=== PATIENT | male | born 1965 | race Caucasian/White ===

== ENCOUNTER 2022-06-13 09:19 | Day surgery (SDC) | payer MEDICARE, OTHER ==
[~2022-06-13] VITALS: Ht 177.8 cm; Wt 139.4 kg
[~2022-06-13 09:19] MED LIST: ACET500 PO; AMLO5 PO; Aspir 8181 MG PO; CARV6.25 PO; Crestor20 MG; GABA300 PO; LISI20 PO; METFORMIN ER1000 M2 PO; NARCAN4 M1; OXYC10TA19 PO; TRULICITY3 MG/0.5 M SC
--- NOTE | 2022-06-13 09:44 | NUR ---
History, Chart, Medications and Allergies reviewed before start of procedure.Patient confirms NPO status and agrees with scheduled surgery. Pre-Op teaching done. Pt verbalizes understanding. Patient States Post-Procedure ride home has been arranged.
--- NOTE | 2022-06-13 11:14 | NUR ---
06/13/22 1114 Eloisa Kenny PRIOR TO PROCEDURE REVIEWED H&P. MEDS AND MARIALUISA. CONTINUOUS MONITORS IN PLACE DURING PROCEDURE ALONG WITH POM IN PLACED O2@10L. SELF PROVIDES ANESTHESIA. SEE RECORDS
--- NOTE | 2022-06-13 11:58 | NUR ---
Discharge instructions reviewed with patient. Patient verbalizes understanding. Copy given to patient to take home. Patient States Post-Procedure ride home has been arranged. Discharged via wheelchair to private car for ride home.
== END 2022-06-13 22:34 | disposition home or self-care (01) ==
LOC: ORSCMMR 09:19 → EDSEX 10:45 → ORSCMMR 10:45 → ORD 10:45 → ORSCMMR 22:34
PROVIDERS: Internal Medicine Gastroenterology
PROC: 0DJD8ZZ Inspection of Lower Intestinal Tract, Via Natural or Artificial Opening Endoscopic (ICD-10-PCS; principal; 2022-06-13 10:45)
DX: Z12.11 Encounter for screening for malignant neoplasm of colon (principal); Z86.010 Personal history of colon polyps; K57.30 Diverticulosis of large intestine without perforation or abscess without bleeding; E11.9 Type 2 diabetes mellitus without complications; I10 Essential (primary) hypertension; E66.01 Morbid (severe) obesity due to excess calories; Z68.42 Body mass index [BMI] 45.0-49.9, adult; Z79.84 Long term (current) use of oral hypoglycemic drugs; Z79.899 Other long term (current) drug therapy
CPT/HCPCS: 82947; J2250; J2405; J2704; J7120

== ENCOUNTER 2023-03-23 05:11 | Emergency (ER) | payer MEDICARE, OTHER ==
[~2023-03-23] VITALS: Ht 182.9 cm; Wt 140.6 kg
[2023-03-23 05:48] LABS: BASOPHILS ABSOLUTE AUTO 0.14 K/mm3 (0.00-0.23); BASOPHILS PERCENT AUTO 1 % (0-2); EOSINOPHILS PERCENT AUTO 2 % (0-6); Hemoglobin 16.2 g/dL (13.5-17.5); IMMATURE GRAN ABSOLUTE AUTO 0.14 K/mm3 (0.00-0.10); IMMATURE GRAN PERCENT AUTO 1 % (0-1); LYMPHOCYTES PERCENT AUTO 25 % (21-46); MONOCYTES ABSOLUTE AUTO 0.91 K/mm3 (0.16-1.47); MONOCYTES PERCENT AUTO 8 % (4-13); Mean Corpuscular HGB 34.3 pg (26.0-34.0); Mean Corpuscular HGB Conc 36.8 g/dL (31.5-36.5); Mean Corpuscular Volume 93 fL (80-100); NEUTROPHILS ABSOLUTE AUTO 7.53 K/mm3 (1.96-9.15); NEUTROPHILS PERCENT AUTO 63 % (41-73); Platelet Count 201 K/mm3 (150-400); RDW Coefficient Variation 13.6 % (11.7-14.2); RDW Standard Deviation 45.4 fL (35.1-46.3); Red Blood Cell Count 4.72 M/mm3 (4.30-5.90); White Blood Cell Count 11.92 K/mm3 (4.00-11.30)
[2023-03-23 05:50] LABS: Base Excess Venous -1.9 mmol/L; Bicarbonate Venous 21.5 mmol/L (24.0-30.0); PCO2 Venous 46.6 mmHg (38-42); pH Blood Venous 7.32 (7.34-7.37)
[2023-03-23 06:04] LABS: International Normalized Ratio 1.14; Prothrombin Time Results 11.9 Sec (9.7-11.5)
[2023-03-23] MEDS ORDERED: MS CONTIN3010 (06:15)
[2023-03-23] MEDS ORDERED: ZANAFLEX413 (06:15)
[2023-03-23 06:33] LABS: Alanine Aminotransfer (ALT/SGP 48 U/L (12-78); Albumin, Blood 3.6 g/dL (3.4-5.0); Albumin/Globulin Ratio 0.9 (0.8-1.8); Alk Phos 115 U/L (50-136); Anion Gap 9 mmol/L (6-16); Aspartate Aminotrans (AST/SGOT 34 U/L (12-37); Beta-hydroxybutyrate 0.7 mg/dL (0.2-2.8); Bilirubin, Total 0.9 mg/dL (0.1-1.0); Blood Urea Nitrogen 16 mg/dL (8-24); Bun/Creatinine Ratio 13.9 (12.0-20.0); CO2, Blood 24 mmol/L (21-32); Calcium, Blood 9.1 mg/dL (8.5-10.1); Chloride, Blood 97 mmol/L (98-108); Creatinine, Blood 1.15 mg/dL (0.60-1.20); Ethanol (Alcohol), Blood, Med <3 mg/dL; Globulin, Blood 4.2 g/dL (2.2-4.0); Glomerular Filtration Rate 74 (60-); Glucose, Blood 431 mg/dL (70-99); Phosphorus, Blood 4.1 mg/dL (2.5-4.9); Potassium, Blood 4.2 mmol/L (3.5-5.5); Sodium, Blood 130 mmol/L (136-145); Total Protein, Blood 7.8 g/dL (6.4-8.2)
[2023-03-23 06:49] LABS: Influenza A, PCR NEGATIVE (NEGATIVE); Influenza B, PCR NEGATIVE (NEGATIVE); Resp Syncytial Virus, PCR NEGATIVE (NEGATIVE); SARS-Cov-2 (COVID-19) PCR, MMC NEGATIVE (NEGATIVE)
[2023-03-23 07:19] LABS: Source, Urine Clean Catch
[2023-03-23 07:29] LABS: Bilirubin, Urine Neg (Neg); Blood, Urine 3+ (Neg); Glucose Qualitative, Urine 4+ (Neg); Ketones, Urine Neg (Neg); Leukocyte Esterase, Urine 3+ (Neg); Nitrite, Urine Neg (Neg); Protein, Urine Neg (Neg); Urobilinogen, Urine NORM (Normal)
[2023-03-23 08:18] LABS: U Amphetamine Screen Not Detected; U Barbituate Screen Not Detected; U Benzodiazapine Screen Not Detected; U Buprenorphine Screen Not Detected; U Cannabinoids Screen Not Detected; U Cocaine Screen Not Detected; U Methadone Screen Not Detected; U Methamphetamine Screen Not Detected; U Opiates Screen DETECTED; U Oxycodone Screen Not Detected; U Phencyclidine Screen Not Detected
[2023-03-23 08:23] LABS: Appearance, Urine Hazy (Clear); Color, Urine Yellow (P-Yellow)
[2023-03-23 08:25] LABS: Bacteria Mod /hpf; Red Blood Cells, Urine 0-2 /hpf (0-2); Squamous Epithelial Cells Few /hpf (Few); White Blood Cells, Urine TNTC /hpf (0-5)
[2023-03-23 08:49] LABS: Base Excess Venous 1.3 mmol/L; PCO2 Venous 48.3 mmHg (38-42); pH Blood Venous 7.35 (7.34-7.37)
[2023-03-23 10:45] VITALS: BP 133/90
[2023-03-23] MEDS ORDERED: ONDA4ODT MM ×2 (10:51→11:29)
[2023-03-23] MEDS ORDERED: CEFU250T47 PO ×2 (10:51→11:29)
== END 2023-03-23 11:06 | disposition home or self-care (01) ==
LOC: ER 05:11
PROVIDERS: Emergency Medicine; Student in an Organized Health Care Education/Training Program
DX: E86.0 Dehydration (principal); N39.0 Urinary tract infection, site not specified; R11.0 Nausea; E11.65 Type 2 diabetes mellitus with hyperglycemia; I10 Essential (primary) hypertension; E66.01 Morbid (severe) obesity due to excess calories; Z11.52 Encounter for screening for COVID-19; Z79.84 Long term (current) use of oral hypoglycemic drugs; Z79.82 Long term (current) use of aspirin; Z79.85 Long-term (current) use of injectable non-insulin antidiabetic drugs; Z79.899 Other long term (current) drug therapy
CPT/HCPCS: 0241U; 70450; 71045; 80053; 81001; 82010; 82803; 82947; 83605; 83690; 83735; 84100; 84145; 85025; 85610; 87086; 87147; 93005; 93010; 96361; 96365; 96366; 99285-25; J0696; J1815; J7030; J7120

== ENCOUNTER 2024-01-05 10:24 | Emergency (ER) | payer MEDICARE, OTHER ==
[~2024-01-05] VITALS: Ht 180.3 cm; Wt 90.7 kg
[~2024-01-05 10:24] MED LIST changes: +CEFU250T47 PO; +MS CONTIN3010; +ONDA4ODT MM; +ZANAFLEX413
[2024-01-05] MEDS ORDERED: NS 1,000 ML IV SCH (11:00)
[2024-01-05] MEDS ORDERED: Ondansetron HCl 2 MG / ML 2ML Vial IV ONE ×4 (11:00→14:20)
[2024-01-05] MEDS ORDERED: Morphine Sulfate 4 MG/1 ML Injection IV ONE ×2 (12:40→14:15)
[2024-01-05 12:45] LABS: BASOPHILS ABSOLUTE AUTO 0.03 K/mm3 (0.00-0.23); BASOPHILS PERCENT AUTO 1 % (0-2); EOSINOPHILS ABSOLUTE AUTO 0.04 K/mm3 (0.00-0.68); EOSINOPHILS PERCENT AUTO 1 % (0-6); Hematocrit 39.3 % (37.0-53.0); Hemoglobin 14.2 g/dL (13.5-17.5); IMMATURE GRAN ABSOLUTE AUTO 0.05 K/mm3 (0.00-0.10); IMMATURE GRAN PERCENT AUTO 1 % (0-1); LYMPHOCYTES ABSOLUTE AUTO 0.92 K/mm3 (0.84-5.20); LYMPHOCYTES PERCENT AUTO 17 % (21-46); MONOCYTES ABSOLUTE AUTO 0.57 K/mm3 (0.16-1.47); MONOCYTES PERCENT AUTO 10 % (4-13); Mean Corpuscular HGB 34.6 pg (26.0-34.0); Mean Corpuscular HGB Conc 36.1 g/dL (31.5-36.5); Mean Corpuscular Volume 96 fL (80-100); Mean Platelet Volume 8.7 fL (9.1-12.4); NEUTROPHILS ABSOLUTE AUTO 3.88 K/mm3 (1.96-9.15); NEUTROPHILS PERCENT AUTO 71 % (41-73); Platelet Count 120 K/mm3 (150-400); RDW Coefficient Variation 14.3 % (11.7-14.2); RDW Standard Deviation 49.9 fL (35.1-46.3); White Blood Cell Count 5.49 K/mm3 (4.00-11.30)
[2024-01-05 13:08] LABS: Albumin, Blood 3.8 g/dL (3.4-5.0); Albumin/Globulin Ratio 1.2 (0.8-1.8); Bilirubin, Total 1.2 mg/dL (0.1-1.0); Bun/Creatinine Ratio 9.6 (12.0-20.0); Calcium, Blood 9.6 mg/dL (8.5-10.1); Creatinine, Blood 0.93 mg/dL (0.60-1.20); Globulin, Blood 3.2 g/dL (2.2-4.0); Potassium, Blood 4.5 mmol/L (3.5-5.5)
[2024-01-05 13:17] LABS: Source, Urine Clean Catch
[2024-01-05 13:34] LABS: Appearance, Urine Clear (Clear); Bilirubin, Urine Neg (Neg); Blood, Urine Neg (Neg); Color, Urine Yellow (P-Yellow); Glucose Qualitative, Urine 2+ (Neg); Ketones, Urine Neg (Neg); Leukocyte Esterase, Urine Neg (Neg); Nitrite, Urine Neg (Neg); Protein, Urine Neg (Neg); Urobilinogen, Urine 2+ (Normal)
[2024-01-05] MEDS ORDERED: HYDROmorphone HCl 2 MG Tab PO ONE (15:50)
[2024-01-05 16:45] VITALS: BP 162/98
[2024-01-05] MEDS ORDERED: ONDA4ODT MM (16:50)
[2024-01-05] MEDS ORDERED: Percocet 5-3251 EACH PO ×2 (16:50→16:53)
== END 2024-01-05 17:07 | disposition home or self-care (01) ==
LOC: ER 10:24
PROVIDERS: Physician Assistant
DX: K66.8 Other specified disorders of peritoneum (principal); K74.60 Unspecified cirrhosis of liver; K76.0 Fatty (change of) liver, not elsewhere classified; I10 Essential (primary) hypertension; Z98.890 Other specified postprocedural states; Z79.82 Long term (current) use of aspirin; Z79.85 Long-term (current) use of injectable non-insulin antidiabetic drugs; Z79.899 Other long term (current) drug therapy; Z96.653 Presence of artificial knee joint, bilateral
CPT/HCPCS: 74177; 80053; 81003; 83690; 85025; 96361; 96374-59; 96375; 96376; 99284-25; A9270; J2270; J2405; J7030; Q9967

== ENCOUNTER 2024-05-04 10:50 | Inpatient (IN) | payer MEDICARE, OTHER ==
[~2024-05-04] VITALS: Ht 182.9 cm; Wt 132.7 kg
[~2024-05-04 10:50] MED LIST changes: -Crestor20 MG; +Percocet 5-3251 EACH PO; +ROSUVASTATIN CA20 MG PO; -ZANAFLEX413; +ZANAFLEX413 PO
[2024-05-04] MEDS ORDERED: NS 1,000 ML IV SCH (11:20)
[2024-05-04 11:28] LABS: BASOPHILS ABSOLUTE AUTO 0.07 K/mm3 (0.00-0.23); BASOPHILS PERCENT AUTO 1 % (0-2); EOSINOPHILS ABSOLUTE AUTO 0.21 K/mm3 (0.00-0.68); EOSINOPHILS PERCENT AUTO 2 % (0-6); Hematocrit 30.2 % (37.0-53.0); Hemoglobin 10.3 g/dL (13.5-17.5); IMMATURE GRAN ABSOLUTE AUTO 0.17 K/mm3 (0.00-0.10); IMMATURE GRAN PERCENT AUTO 2 % (0-1); LYMPHOCYTES PERCENT AUTO 13 % (21-46); MONOCYTES ABSOLUTE AUTO 0.91 K/mm3 (0.16-1.47); MONOCYTES PERCENT AUTO 10 % (4-13); Mean Corpuscular HGB 32.4 pg (26.0-34.0); Mean Corpuscular HGB Conc 34.1 g/dL (31.5-36.5); Mean Corpuscular Volume 95 fL (80-100); Mean Platelet Volume 8.6 fL (9.1-12.4); NEUTROPHILS PERCENT AUTO 72 % (41-73); Platelet Count 390 K/mm3 (150-400); RDW Coefficient Variation 14.2 % (11.7-14.2); RDW Standard Deviation 49.8 fL (35.1-46.3); Red Blood Cell Count 3.18 M/mm3 (4.30-5.90); White Blood Cell Count 9.26 K/mm3 (4.00-11.30)
[2024-05-04 12:02] LABS: Albumin, Blood 2.6 g/dL (3.4-5.0); Albumin/Globulin Ratio 0.5 (0.8-1.8); Bilirubin, Total 0.4 mg/dL (0.1-1.0); Bun/Creatinine Ratio 13.9 (12.0-20.0); Calcium, Blood 9.2 mg/dL (8.5-10.1); Creatinine, Blood 4.24 mg/dL (0.60-1.20); Globulin, Blood 5.3 g/dL (2.2-4.0); Potassium, Blood 4.1 mmol/L (3.5-5.5); Total Protein, Blood 7.9 g/dL (6.4-8.2)
[2024-05-04] MEDS ORDERED: CeFAZolin Sodium 1,000 MG in NS 50 ML IV ONE (13:20)
[2024-05-04] MEDS ORDERED: FLU VACC TS2024-25(6MOS UP)/PF 45 MCG/0.5 ML SYRINGE IM SCH (14:10)
[2024-05-04] MEDS ORDERED: Magnesium Hydroxide Conc 10 ML UDC PO PRN (14:15)
[2024-05-04] MEDS ORDERED: TRIDERM28.4 GM TOP (14:36)
[2024-05-04] MEDS ORDERED: PANTOPRAZOLE SO40 M2 PO (14:37)
[2024-05-04] MEDS ORDERED: Lactated Ringer's 1,000 ML IV SCH (15:00)
[2024-05-04] MEDS ORDERED: Ondansetron 4 MG SoluTab MM PRN (15:20)
[2024-05-04] MEDS ORDERED: HydrALAZINE HCl 20 MG / ML 1ML Vial IV PRN (15:20)
[2024-05-04] MEDS ORDERED: Acetaminophen 500 MG Tab PO PRN (15:25)
[2024-05-04] MEDS ORDERED: OxyCODONE HCL 5 MG TAB PO PRN (16:00)
[2024-05-04] MEDS ORDERED: Insulin Human Lispro 100 Units/ML 3ML Syringe SC SCH (16:30)
[2024-05-04] MEDS ORDERED: Carvedilol 6.25 MG Tab PO SCH (17:00)
--- NOTE | 2024-05-04 17:29 | NUR ---
PATIENT ARRIVED TO FLOOR AT 1729 VIA WC ESCORTED BY .
[2024-05-04 17:36] VITALS: BP 205/93
[2024-05-04 18:30] VITALS: BP 146/78
[2024-05-04 18:52] VITALS: BP 146/78
[2024-05-04] MEDS ORDERED: OZEMPIC2 MG/0.75 SC (19:33)
[2024-05-04] MEDS ORDERED: FAMO20 PO (19:43)
[2024-05-04 19:53] VITALS: BP 144/84
[2024-05-04] MEDS ORDERED: Gabapentin 300 MG Cap PO SCH (21:00)
[2024-05-04] MEDS ORDERED: Triamcinolone Acet 0.1% Cream 15 gm TOP SCH (21:00)
[2024-05-04] MEDS ORDERED: AmLODIPine Besylate 5 MG Tab PO SCH (21:00)
[2024-05-04] MEDS ORDERED: Docusate Sodium 100 MG Cap PO SCH (21:00)
[2024-05-05] VITALS (19 sets, daily range): BP systolic 90–162; BP diastolic 54–96
[2024-05-05] MEDS ORDERED: CeFAZolin Sodium 1,000 MG in NS 50 ML IV SCH (01:00)
--- NOTE | 2024-05-05 05:49 | NUR ---
MARKET ANALYSIS DIRECTOR SUMMARY PT ADMITTED FROM ER. HIS ABDOMINAL WOUND FROM HIS SURGERY ON 04-14 IS NOT APPROXIMATED AND HAS SEROSANG DRAINAGE WITH ONE SMALL AREA THAT IS DRAINING PUS, ENTIRE INCISION SURROUNDED BY REDNESS (SEE PHOTOS IN PAPER CHART). WOUND CLEANSED WITH WOUND CONSTRUCTION EQUIPMENT OPERATOR AND NEW DRESSING APPLIED. PT HAS BEEN NPO SINCE MIDNIGHT IN ANTICIPATION OF SURGICAL CONSULT TODAY. NO EVENTS ON TELE, NSR IN THE 80S-90S. PRN IV HYDRALAZINE GIVEN X 1 FOR SBP >160. PT REPORTS ABD PAIN FROM HIS CELLULITS RELIEVED BY OXYCODONE. LR RUNNING AT 125.
[2024-05-05 05:51] LABS: Bun/Creatinine Ratio 13.5 (12.0-20.0); Calcium, Blood 8.8 mg/dL (8.5-10.1); Creatinine, Blood 3.64 mg/dL (0.60-1.20); Potassium, Blood 4.1 mmol/L (3.5-5.5)
[2024-05-05] MEDS ORDERED: CeFAZolin Sodium 2,000 MG in NS 100 ML IV SCH (08:17)
[2024-05-05] MEDS ORDERED: Rosuvastatin Calcium 10 MG Tab PO SCH (09:00)
[2024-05-05] MEDS ORDERED: Pantoprazole Sodium 40 MG Tab PO SCH (09:00)
[2024-05-05] MEDS ORDERED: TiZANidine HCl 4 MG Tab PO SCH (09:00)
[2024-05-05] MEDS ORDERED: Heparin Sodium 5000 Units/ML 1ML MDV SC SCH (09:00)
[2024-05-05] MEDS ORDERED: Sodium Bicarbonate 650 MG Tab PO SCH (09:00)
[2024-05-05] MEDS ORDERED: Sodium Hypochlorite 480 ML BTL (0.25%) TOP ONE (09:50)
[2024-05-05] MEDS ORDERED: Lactated Ringer's 1,000 ML IV SCH ×2 (11:35→15:25)
--- NOTE | 2024-05-05 11:40 | NUR ---
PT TO SDS BY FAMILY JACOB WITH PT. History, Chart, Medications and Allergies reviewed before start of procedure.Patient confirms NPO status and agrees with scheduled surgery. Pre-Op teaching done. Pt verbalizes understanding. Lungs clear T/O to Auscultation.
[2024-05-05] MEDS ORDERED: Piperacillin/Tazobactam Sod 2.25 GM in NS 50 ML IV SCH (12:00)
[2024-05-05] MEDS ORDERED: Ondansetron HCl 2 MG / ML 2ML Vial ONE (12:01)
[2024-05-05] MEDS ORDERED: Dexamethasone Sod Phos 10 MG/ML 1ML VIAL ONE (12:01)
[2024-05-05] MEDS ORDERED: Rocuronium Bromide 10 MG/ML 5ML Injection IV ONE (12:01)
[2024-05-05] MEDS ORDERED: propofoL 20 ML IV ONE ×2 (12:01)
[2024-05-05] MEDS ORDERED: Midazolam HCl 1MG / ML 2ML Vial ONE ×2 (12:04→12:47)
--- NOTE | 2024-05-05 12:25 | NUR ---
EKG COMPLETED PER ORDER. ABX STARTED, DISCUSSED WITH CONDENSER OPERATOR.
[2024-05-05] MEDS ORDERED: Etomidate 2MG / ML 10ML Vial ONE (12:36)
--- NOTE | 2024-05-05 12:50 | NUR ---
TELE TO PACU WITH PT'S NAME BATTING MACHINE OPERATOR INSULATION IT.
[2024-05-05] MEDS ORDERED: ePHEDrine Sulfate 50 MG/ML 1ML Injection ONE (13:00)
[2024-05-05] MEDS ORDERED: Sugammadex Sodium 200 MG/2ML SDV (100 MG/ML) ONE (13:10)
--- NOTE | 2024-05-05 13:29 | NUR ---
05/05/24 1329 Laura,Danika ZOSYN 2.25GM WAS STARTED PREOPERATIVELY.
[2024-05-05] MEDS ORDERED: FentaNYL Citrate 50 MCG/ML 2 ML Injection ONE (13:55)
[2024-05-05] MEDS ORDERED: FentaNYL Citrate 50 MCG/ML 2 ML Injection IV PRN (18:45)
[2024-05-05] MEDS ORDERED: Insulin Human Lispro 100 Units/ML 3ML Syringe SC SCH (23:41)
[2024-05-06] VITALS (7 sets, daily range): BP systolic 119–162; BP diastolic 80–99
[2024-05-06 05:36] LABS: Bun/Creatinine Ratio 12.8 (12.0-20.0); Calcium, Blood 8.3 mg/dL (8.5-10.1); Creatinine, Blood 3.13 mg/dL (0.60-1.20)
--- NOTE | 2024-05-06 07:39 | NUR ---
ASSUMED CARE OF PATIENT. AWAKE DURIN SHIFT-CHANGE REPORT. UPDATES COMPLETED THIS PATIENT IS FAMILIAR TO THIS RN. NO ACUTE NEEDS. BED IN LOWEST POSITION. CALL LIGHT WITHIN REACH. PAIN WITHIN NORMAL PROPORTIONS. CHART REVIEW INITIATED.
--- NOTE | 2024-05-06 07:41 | NUR ---
CHIN STRAP CUTTER SUMMARY PTS ABDOMINAL INCISION PAIN INCREASED AFTER HIS SURGERY COMPARED WITH BEFORE HIS SURGERY. PAIN WAS WELL CONTROLLED WITH OXYCODONE AND IV FENTANYL FOR BREAKTHROUGH. PLAN FOR WOUND PACKING AND WOUND CARE THIS MORNING AFTER PTS GETS HERE SO SHE CAN BE EDUCATED ON HOW TO PACK A WOUND AT HOME.
[2024-05-06] MEDS ORDERED: Insulin Human Lispro 100 Units/ML 3ML Syringe SC SCH (11:30)
--- NOTE | 2024-05-06 18:29 | NUR ---
END OF SHIFT SUMMARY: A&Ox4. PLEASANT AND COOPERATIVE WITH CARE. CALLS APPROPRIATELY AND IS ABLE TO ADVOCATE NEEDS EFFECTIVELY. CONTINENT OF BOWEL AND BLADDER AND AMBULATES INDEPENDENTLY TO BATHROOM FOR BM. URINAL FOR VOIDING D/T ABD PAIN c SITTING UP AND LYING DOWN. MEDS WHOLE c FLUIDS. MEDICATED q4h PRN PAIN. TELE NS c PVCs @ 85bpm. POD#1 I&D DEHISCING ABD WOUND. ABD BINDER IN PLACE TO AID c ABD INCISION. WOUND CARE DONE TODAY; ,CAL, SHOWN HOW TO PERFORM. MEASUREMENTS TAKEN:. LENGTH: 9cm; WIDTH: 4cm; DEPTH AT DEEPEST: 4cm AND 4cm TUNNELING TOP OF WOUND GOING UP CADUALLY. PACKED PER ORDERS. SUTURES PALPATED PER ORDERS. NEW PICTURES TAKEN AND PLACED IN HARD COPY CHART. BED IN LOWEST POSITION, CALL LIGHT WITHIN REACH, ALL NEEDS MET. REPORT TO ONCOMING NURSE.
--- NOTE | 2024-05-06 20:38 | NUR ---
PT ADMITTED TO FLOOR AT 1830 FOR SBO. REPORT FROM DAY SHIFT MEDICAL FLOOR RN- ED UNABLE TO PLACE NGT X 2 ATTEMPTS, AND HEART RATE 150-160'S PER TELE. IV METOPROLOL X3 DOSES GIVEN PER ORDER WITH TELE STILL SHOWING AFIB 120'130'S. WILLIAM DEL CASTILLO NOTIFIED, AND INSTRUCTED TO TRANSFER PT TO PCU FOR DILT GTT STARTING AT 10MG/HR. NOTIFIED ABUNDIO OF INABLITLY OF ED TO INSERT NGT, AND PT PULLING OUT 1 IV THIS SHIFT, BUT IF POSSIBLE NGT IS STILL NEEDED PER ABUNDIO.
[2024-05-06] MEDS ORDERED: dilTIAZem HCL 100 MG in NS 100 ML IV SCH (20:40)
[2024-05-07 04:32] VITALS: BP 154/88
[2024-05-07 06:00] LABS: Bun/Creatinine Ratio 14.3 (12.0-20.0); Calcium, Blood 8.5 mg/dL (8.5-10.1); Creatinine, Blood 2.73 mg/dL (0.60-1.20); Potassium, Blood 3.9 mmol/L (3.5-5.5)
--- NOTE | 2024-05-07 06:22 | NUR ---
SHIFT SUMMARY PT WITH DRESSING TO ABD CLEAN AND INTACT, EXTRA ABD PAD ADDED TO KEEP DRY AGAINST ABD BINDER. DRESSING HAD BEEN CHANGED DURING DAY SHIFT. PT MEDICATED FOR PAIN PER EMAR. IVF AND IV ANTIBIOTICS CONTINUE. PT INDEPENDENT IN ROOM. SLEPT INTERMITTENTLY DURING THE NIGHT. BED IN LOWEST POSITION, CALL LIGHT WITHIN REACH, SIDERAILS UP X2.
[2024-05-07 07:42] VITALS: BP 147/89
[2024-05-07] MEDS ORDERED: GlipiZIDE 5 MG TabCR PO SCH (08:00)
[2024-05-07] MEDS ORDERED: Amoxicillin/Clavulanate K 875 MG Tab PO SCH (09:00)
[2024-05-07] MEDS ORDERED: AmLODIPine Besylate 5 MG Tab PO SCH (09:00)
[2024-05-07] MEDS ORDERED: AMOCLA875 PO (10:33)
[2024-05-07] MEDS ORDERED: AMLO10 PO (10:33)
[2024-05-07] MEDS ORDERED: DOCU100 PO (10:33)
[2024-05-07] MEDS ORDERED: CARV6.25 PO (10:33)
[2024-05-07] MEDS ORDERED: VISBIOME 112.51 EACH PO (10:34)
[2024-05-07] MEDS ORDERED: GLIP5 PO (10:34)
--- NOTE | 2024-05-07 11:18 | NUR ---
DISCHARGE SUMMARY PT DC THIS SHIFT. DC INSTRUCTION GONE OVER WITH PT AND PT WHOM BOTH STATED UNDERSTANDING. PT WAS ESCORTED OUT TO PRIVATE VEHICLE VIA WHEELCHAIR BY ENGINEERING MANAGER [employer]LECTRONICS.
== END 2024-05-07 11:15 | disposition home or self-care (01) | DRG 856 ==
LOC: ER 10:50 → MEDS 14:10 → ENPENDDIS 05-07 10:14 → MEDS 05-07 11:15
PROVIDERS: Emergency Medicine; Surgery; ADMIT Internal Medicine
PROC: 0JB80ZZ Excision of Abdomen Subcutaneous Tissue and Fascia, Open Approach (ICD-10-PCS; principal; 2024-05-05 13:00)
DX: T81.41XA Infection following a procedure, superficial incisional surgical site, initial encounter (principal); N17.0 Acute kidney failure with tubular necrosis; F11.20 Opioid dependence, uncomplicated; L03.311 Cellulitis of abdominal wall; Z68.41 Body mass index [BMI] 40.0-44.9, adult; K21.9 Gastro-esophageal reflux disease without esophagitis; E11.9 Type 2 diabetes mellitus without complications; G89.29 Other chronic pain; G47.33 Obstructive sleep apnea (adult) (pediatric); K74.60 Unspecified cirrhosis of liver; E78.5 Hyperlipidemia, unspecified; I10 Essential (primary) hypertension; E66.01 Morbid (severe) obesity due to excess calories; K22.70 Barrett's esophagus without dysplasia; Z96.653 Presence of artificial knee joint, bilateral; Z98.890 Other specified postprocedural states; E66.9 Obesity, unspecified; Z79.899 Other long term (current) drug therapy
CPT/HCPCS: 36415; 74177; 80048; 80053; 82570; 82947; 83036; 84300; 85025; 87070; 87075; 87077; 87147; 87186; 87205; 93005; 93010; 96361; 96365-59; 99284-25; A9270; J0360; J0690; J1100; J1644; J2250; J2405; J2543; J2704; J3010; J7030; J7120; Q9967

== ENCOUNTER 2024-05-11 00:22 | Day surgery (SDC) | payer MEDICARE, OTHER ==
[~2024-05-11 00:22] MED LIST changes: +AMLO10 PO; +AMOCLA875 PO; +DOCU100 PO; +FAMO20 PO; +GLIP5 PO; +OZEMPIC2 MG/0.75 SC; +PANTOPRAZOLE SO40 M2 PO; +TRIDERM28.4 GM TOP; +VISBIOME 112.51 EACH PO
== END 2024-05-11 23:00 | disposition home or self-care (01) ==
LOC: WOUND 00:22
DX: T81.31XD Disruption of external operation (surgical) wound, not elsewhere classified, subsequent encounter (principal); T81.49XD Infection following a procedure, other surgical site, subsequent encounter; I10 Essential (primary) hypertension; E11.9 Type 2 diabetes mellitus without complications; G47.33 Obstructive sleep apnea (adult) (pediatric)
CPT/HCPCS: G0463

== ENCOUNTER 2024-05-17 01:19 | Day surgery (SDC) | payer MEDICARE, OTHER | END 2024-05-17 23:00 | disposition home or self-care (01) | LOC: WOUND 01:19 | DX: T81.49XD Infection following a procedure, other surgical site, subsequent encounter (principal); S31.109D Unspecified open wound of abdominal wall, unspecified quadrant without penetration into peritoneal cavity, subsequent encounter ==

== ENCOUNTER 2024-05-24 02:18 | Day surgery (SDC) | payer MEDICARE, OTHER | END 2024-05-24 23:00 | disposition home or self-care (01) | LOC: WOUND 02:18 | DX: T81.31XA Disruption of external operation (surgical) wound, not elsewhere classified, initial encounter (principal); T81.49XA Infection following a procedure, other surgical site, initial encounter; S31.109A Unspecified open wound of abdominal wall, unspecified quadrant without penetration into peritoneal cavity, initial encounter; I10 Essential (primary) hypertension; E11.9 Type 2 diabetes mellitus without complications; G47.33 Obstructive sleep apnea (adult) (pediatric) | CPT/HCPCS: A6196; A6213; G0463 ==

== ENCOUNTER 2024-05-31 01:42 | Day surgery (SDC) | payer MEDICARE, OTHER | END 2024-05-31 23:17 | disposition home or self-care (01) | LOC: WOUND 01:42 | DX: T81.31XD Disruption of external operation (surgical) wound, not elsewhere classified, subsequent encounter (principal); E11.9 Type 2 diabetes mellitus without complications; I10 Essential (primary) hypertension; G47.33 Obstructive sleep apnea (adult) (pediatric) | CPT/HCPCS: A6213; G0463 ==

== ENCOUNTER 2024-06-07 02:21 | Day surgery (SDC) | payer MEDICARE, OTHER | END 2024-06-07 22:45 | disposition home or self-care (01) | LOC: WOUND 02:21 | DX: T81.31XD Disruption of external operation (surgical) wound, not elsewhere classified, subsequent encounter (principal); E11.9 Type 2 diabetes mellitus without complications; I10 Essential (primary) hypertension; G47.33 Obstructive sleep apnea (adult) (pediatric) | CPT/HCPCS: G0463 ==

== ENCOUNTER 2024-06-14 00:26 | Day surgery (SDC) | payer MEDICARE, OTHER | END 2024-06-14 23:00 | disposition home or self-care (01) | LOC: WOUND 00:26 | DX: S31.109D Unspecified open wound of abdominal wall, unspecified quadrant without penetration into peritoneal cavity, subsequent encounter (principal); T81.49XD Infection following a procedure, other surgical site, subsequent encounter; X58.XXXD Exposure to other specified factors, subsequent encounter | CPT/HCPCS: G0463 ==

== ENCOUNTER 2024-07-08 03:20 | Day surgery (SDC) | payer MEDICARE, OTHER ==
[2024-07-08] MEDS ORDERED: Lidocaine HCl 4% Cream 5 GM ONE (08:31)
== END 2024-07-08 23:00 | disposition home or self-care (01) ==
LOC: WOUND 03:20
DX: S31.109D Unspecified open wound of abdominal wall, unspecified quadrant without penetration into peritoneal cavity, subsequent encounter (principal); T81.49XD Infection following a procedure, other surgical site, subsequent encounter; X58.XXXD Exposure to other specified factors, subsequent encounter
CPT/HCPCS: A6213; A9270

== ENCOUNTER 2024-07-14 05:24 | Day surgery (SDC) | payer MEDICARE, OTHER | END 2024-07-14 23:00 | disposition home or self-care (01) | LOC: WOUND 05:24 | DX: T81.31XA Disruption of external operation (surgical) wound, not elsewhere classified, initial encounter (principal); T81.49XA Infection following a procedure, other surgical site, initial encounter; G47.33 Obstructive sleep apnea (adult) (pediatric); I10 Essential (primary) hypertension; E11.9 Type 2 diabetes mellitus without complications | CPT/HCPCS: A6213; G0463 ==

== ENCOUNTER 2024-07-21 02:19 | Day surgery (SDC) | payer MEDICARE, OTHER | END 2024-07-21 23:00 | disposition home or self-care (01) | LOC: WOUND 02:19 | DX: S31.109A Unspecified open wound of abdominal wall, unspecified quadrant without penetration into peritoneal cavity, initial encounter (principal); T81.31XA Disruption of external operation (surgical) wound, not elsewhere classified, initial encounter; E11.9 Type 2 diabetes mellitus without complications; I10 Essential (primary) hypertension; G47.33 Obstructive sleep apnea (adult) (pediatric) | CPT/HCPCS: A6213; G0463 ==

== ENCOUNTER 2024-07-28 03:04 | Day surgery (SDC) | payer MEDICARE, OTHER | END 2024-07-28 23:00 | disposition home or self-care (01) | LOC: WOUND 03:04 | DX: T81.30XD Disruption of wound, unspecified, subsequent encounter (principal); T81.49XD Infection following a procedure, other surgical site, subsequent encounter; Y83.8 Other surgical procedures as the cause of abnormal reaction of the patient, or of later complication, without mention of misadventure at the time of the procedure | CPT/HCPCS: A6213; G0463 ==

== ENCOUNTER 2024-08-04 05:42 | Day surgery (SDC) | payer MEDICARE, OTHER | END 2024-08-04 23:00 | LOC: WOUND 05:42 | DX: T81.31XA Disruption of external operation (surgical) wound, not elsewhere classified, initial encounter (principal); I10 Essential (primary) hypertension; G47.33 Obstructive sleep apnea (adult) (pediatric); E11.9 Type 2 diabetes mellitus without complications | CPT/HCPCS: A6213; G0463 ==

== ENCOUNTER 2024-09-15 03:20 | Day surgery (SDC) | payer MEDICARE, OTHER | END 2024-09-15 23:00 | disposition home or self-care (01) | LOC: WOUND | DX: S31.109D Unspecified open wound of abdominal wall, unspecified quadrant without penetration into peritoneal cavity, subsequent encounter (principal); T81.49XD Infection following a procedure, other surgical site, subsequent encounter; E11.9 Type 2 diabetes mellitus without complications; I10 Essential (primary) hypertension; G47.33 Obstructive sleep apnea (adult) (pediatric); X58.XXXD Exposure to other specified factors, subsequent encounter | CPT/HCPCS: G0463 ==

== ENCOUNTER 2024-09-22 01:46 | Day surgery (SDC) | payer MEDICARE, OTHER | END 2024-09-22 23:00 | disposition home or self-care (01) | LOC: WOUND 01:46 | DX: S31.109A Unspecified open wound of abdominal wall, unspecified quadrant without penetration into peritoneal cavity, initial encounter (principal); T81.31XA Disruption of external operation (surgical) wound, not elsewhere classified, initial encounter; Y83.8 Other surgical procedures as the cause of abnormal reaction of the patient, or of later complication, without mention of misadventure at the time of the procedure | CPT/HCPCS: G0463 ==

== ENCOUNTER 2024-09-29 03:16 | Day surgery (SDC) | payer MEDICARE, OTHER | END 2024-09-29 23:00 | disposition home or self-care (01) | LOC: WOUND 03:16 | DX: S31.109A Unspecified open wound of abdominal wall, unspecified quadrant without penetration into peritoneal cavity, initial encounter (principal); T81.31XA Disruption of external operation (surgical) wound, not elsewhere classified, initial encounter; Y83.8 Other surgical procedures as the cause of abnormal reaction of the patient, or of later complication, without mention of misadventure at the time of the procedure | CPT/HCPCS: A9270; G0463 ==

== ENCOUNTER 2024-10-06 03:16 | Day surgery (SDC) | payer MEDICARE, OTHER | END 2024-10-06 23:00 | disposition home or self-care (01) | LOC: WOUND 03:16 | DX: T81.31XA Disruption of external operation (surgical) wound, not elsewhere classified, initial encounter (principal); T81.49XA Infection following a procedure, other surgical site, initial encounter; Y83.8 Other surgical procedures as the cause of abnormal reaction of the patient, or of later complication, without mention of misadventure at the time of the procedure | CPT/HCPCS: G0463 ==

== ENCOUNTER 2024-10-13 03:26 | Day surgery (SDC) | payer MEDICARE, OTHER | END 2024-10-13 23:00 | disposition home or self-care (01) | LOC: WOUND 03:26 | DX: T81.31XA Disruption of external operation (surgical) wound, not elsewhere classified, initial encounter (principal); Y83.8 Other surgical procedures as the cause of abnormal reaction of the patient, or of later complication, without mention of misadventure at the time of the procedure | CPT/HCPCS: A9270; G0463 ==

== ENCOUNTER 2024-11-03 06:20 | Day surgery (SDC) | payer MEDICARE, OTHER | END 2024-11-03 23:00 | disposition home or self-care (01) | LOC: WOUND 06:20 | DX: T81.49XA Infection following a procedure, other surgical site, initial encounter (principal) | CPT/HCPCS: G0463 ==

== ENCOUNTER 2025-02-18 14:58 | Emergency (ER) | payer MEDICARE, OTHER ==
[~2025-02-18] VITALS: Ht 180.3 cm; Wt 136.1 kg
[2025-02-18] MEDS ORDERED: NS 1,000 ML IV SCH (15:35)
[2025-02-18] MEDS ORDERED: Morphine Sulfate 4 MG/1 ML Injection IV ONE ×2 (15:35→18:25)
[2025-02-18] MEDS ORDERED: Prochlorperazine Edisylate 10 mg Vial IV ONE (15:35)
[2025-02-18 16:08] LABS: BASOPHILS ABSOLUTE AUTO 0.09 K/mm3 (0.00-0.23); BASOPHILS PERCENT AUTO 1 % (0-2); EOSINOPHILS ABSOLUTE AUTO 0.11 K/mm3 (0.00-0.68); EOSINOPHILS PERCENT AUTO 1 % (0-6); Hematocrit 40.9 % (37.0-53.0); Hemoglobin 15.1 g/dL (13.5-17.5); IMMATURE GRAN ABSOLUTE AUTO 0.20 K/mm3 (0.00-0.10); IMMATURE GRAN PERCENT AUTO 2 % (0-1); LYMPHOCYTES ABSOLUTE AUTO 1.71 K/mm3 (0.84-5.20); LYMPHOCYTES PERCENT AUTO 13 % (21-46); MONOCYTES ABSOLUTE AUTO 0.93 K/mm3 (0.16-1.47); MONOCYTES PERCENT AUTO 7 % (4-13); Mean Corpuscular HGB Conc 36.9 g/dL (31.5-36.5); Mean Corpuscular Volume 91 fL (80-100); NEUTROPHILS ABSOLUTE AUTO 9.78 K/mm3 (1.96-9.15); NEUTROPHILS PERCENT AUTO 76 % (41-73); NRBC ABSOLUTE 0.02 K/mm3 (0.00-0.02); NRBC Auto 0.2 /100 WBC (0.0-0.2); Platelet Count 190 K/mm3 (150-400); RDW Coefficient Variation 14.4 % (11.7-14.2); RDW Standard Deviation 44.0 fL (35.1-46.3)
[2025-02-18 16:19] LABS: Alanine Aminotransfer (ALT/SGP 26.0 U/L (12-78); Albumin, Blood 3.3 g/dL (3.4-5.0); Albumin/Globulin Ratio 0.8 (0.8-1.8); Anion Gap 11.0 mmol/L (3-11); Aspartate Aminotrans (AST/SGOT 17.0 U/L (12-37); Bilirubin, Total 1.4 mg/dL (0.1-1.0); Blood Urea Nitrogen 20.0 mg/dL (8-24); CO2, Blood 25.0 mmol/L (21-32); Calcium, Blood 8.6 mg/dL (8.5-10.1); Chloride, Blood 95.0 mmol/L (98-108); Creatinine, Blood 0.85 mg/dL (0.60-1.20); Globulin, Blood 4.0 g/dL (2.2-4.0); Glucose, Blood 388.0 mg/dL (70-99); Potassium, Blood 4.4 mmol/L (3.5-5.5); Sodium, Blood 127.0 mmol/L (136-145); Total Protein, Blood 7.3 g/dL (6.4-8.2)
[2025-02-18] MEDS ORDERED: CefTRIAXone Sodium 2,000 MG in NS 100 ML IV ONE (17:00)
[2025-02-18] MEDS ORDERED: AZIT250 PO (19:27)
[2025-02-18] MEDS ORDERED: CEFP200 PO (19:27)
[2025-02-18] MEDS ORDERED: ONDA4ODT MM (19:29)
[2025-02-18 19:40] VITALS: BP 109/73
== END 2025-02-18 19:40 | disposition home or self-care (01) ==
LOC: ER 14:58
PROVIDERS: Emergency Medicine
DX: J18.9 Pneumonia, unspecified organism (principal); E86.1 Hypovolemia; E11.9 Type 2 diabetes mellitus without complications; I10 Essential (primary) hypertension; Z79.899 Other long term (current) drug therapy
CPT/HCPCS: 36415; 71046; 74177; 80053; 83605; 83690; 83735; 83880; 84484; 85025; 93005; 93010; 96365-59; 96368; 96375; 96376; 99284-25; J0456; J0696; J0780; J2270; J7030; J7050; Q9967